=== PATIENT | female | born 1985 | race Caucasian/White ===

== ENCOUNTER 2016-10-08 18:04 | Observation (INO) | payer MEDICAID ==
[~2016-10-08] VITALS: Ht 162.6 cm; Wt 72.6 kg
[~2016-10-08 18:04] MED LIST: FOLI-43 PO; PNV1TABL76 PO
[2016-10-08] MEDS ORDERED: DEXT 5%/LACTATED RINGERS 1,000 ML IV SCH (18:30)
== END 2016-10-08 19:50 | disposition home or self-care (01) ==
LOC: L&D 18:04
PROVIDERS: ADMIT Obstetrics & Gynecology; ATTEND Obstetrics & Gynecology
DX: O26.893 Other specified pregnancy related conditions, third trimester (principal); R11.0 Nausea; R53.1 Weakness; Z3A.00 Weeks of gestation of pregnancy not specified
CPT/HCPCS: 99281; G0378; 96360; G0379

== ENCOUNTER 2016-11-09 02:10 | Observation (INO) | payer MEDICAID ==
[~2016-11-09] VITALS: Ht 154.9 cm; Wt 74.8 kg
[2016-11-09] MEDS ORDERED: ACETAMINOPHEN 500MG TABLET PO NR (03:00)
== END 2016-11-09 04:10 | disposition home or self-care (01) ==
LOC: L&D 02:10
PROVIDERS: ADMIT Obstetrics & Gynecology; ATTEND Obstetrics & Gynecology
DX: O36.8130 Decreased fetal movements, third trimester, not applicable or unspecified (principal); Z3A.36 36 weeks gestation of pregnancy
CPT/HCPCS: 76815; 76818; 99281; G0378; 96361; 96372

== ENCOUNTER 2016-11-14 14:11 | Observation (INO) | payer MEDICAID ==
[~2016-11-14] VITALS: Ht 154.9 cm; Wt 76.2 kg
== END 2016-11-14 17:05 | disposition home or self-care (01) ==
LOC: L&D 14:11
PROVIDERS: ADMIT Obstetrics & Gynecology; ATTEND Obstetrics & Gynecology
DX: O42.92 Full-term premature rupture of membranes, unspecified as to length of time between rupture and onset of labor (principal); Z3A.37 37 weeks gestation of pregnancy
CPT/HCPCS: 76815; 76818; 99281; G0378; A4315

== ENCOUNTER 2017-03-05 22:59 | Emergency (ER) | payer MEDICAID ==
[~2017-03-05] VITALS: Ht 157.5 cm; Wt 70.0 kg
[2017-03-06] MEDS ORDERED: KETOROLAC 30MG/ML VIAL IV STA (02:04)
[2017-03-06] MEDS ORDERED: ONDANSETRON HCL 4MG/2ML VIAL IV STA (02:04)
[2017-03-06] MEDS ORDERED: SODIUM CHLORIDE 0.9% 1,000 ML IV ONE (02:04)
[2017-03-06 02:26] LABS: CHLORIDE 102 mEq/L (98-107)
[2017-03-06 02:28] LABS: BASOPHILS % 0.2 % (0.0-2.0); EOSINOPHILS % 0.6 % (0.0-5.0); HEMATOCRIT. 40.4 % (36.0-48.0); HEMOGLOBIN. 13.9 g/dL (12.0-16.0); LYMPHOCYTES % 19.4 % (20.0-50.0); MEAN CORPUSCULAR HEMOGLOBIN 29.3 pg (28.0-32.0); MEAN CORPUSCULAR VOLUME 85.3 fL (81.0-99.0); MEAN PLATELET VOLUME 9.7 fl (7.4-10.4); MONOCYTES % 5.7 % (2.0-8.0); NEUTROPHILS % 74.1 % (40.0-76.0); PLATELET 210 x1000/uL (130-400); RED BLOOD CELL COUNT 4.74 mill/uL (4.2-5.4); RED CELL DISTRIBUTION WIDTH 13.5 % (11.6-14.6)
[2017-03-06 02:29] LABS: PROTHROMBIN TIME 10.6 sec
[2017-03-06 02:34] LABS: CARBON DIOXIDE 31 mEq/L (21-32)
[2017-03-06 02:53] LABS: CLARITY URINE CLEAR (CLEAR); COLOR URINE YELLOW (YELLOW); GLUCOSE URINE NEGATIVE (NEGATIVE); KETONES URINE NEGATIVE (NEGATIVE); LEUKOCYTE ESTERASE URINE 1+ (NEGATIVE); NITRITE URINE NEGATIVE (NEGATIVE); OCCULT BLOOD URINE TRACE (NEGATIVE); PROTEIN URINE TRACE (NEGATIVE); SPECIFIC GRAVITY URINE 1.026 (1.005-1.030)
[2017-03-06 04:55] VITALS: BP 101/70
== END 2017-03-06 05:21 | disposition home or self-care (01) ==
LOC: ER 03-06 01:26
DX: N39.0 Urinary tract infection, site not specified (principal); Z97.5 Presence of (intrauterine) contraceptive device
CPT/HCPCS: 36415; 80053; 81001; 81025; 83690; 85025; 85610; 96361; 96374; 96375; 99284; J1885; J2405; J7030; Z7610

== ENCOUNTER 2019-06-07 11:09 | Inpatient (IN) | payer OTHER, MEDICAID ==
[~2019-06-07] VITALS: Ht 154.9 cm; Wt 72.6 kg
[2019-06-07] MEDS ORDERED: SODIUM CHLORIDE 0.9% 1,000 ML IV ONE (11:48)
[2019-06-07] MEDS ORDERED: MORPHINE SULFATE 4 MG/ML CPJ (NOT FOR IM USE) IV STA (11:48)
[2019-06-07] MEDS ORDERED: HYDROCODONE/ACETAMINOPHEN 5/325MG TABLET PO ONE (12:30)
[2019-06-07 13:02] LABS: BASOPHILS % 0.4 % (0.0-2.0); EOSINOPHILS % 0.3 % (0.0-5.0); HEMATOCRIT. 42.1 % (36.0-48.0); HEMOGLOBIN. 14.1 g/dL (12.0-16.0); LYMPHOCYTES % 21.4 % (20.0-50.0); MEAN CORPUSCULAR HEMOGLOBIN 28.8 pg (28.0-32.0); MEAN CORPUSCULAR VOLUME 86.3 fL (81.0-99.0); MEAN PLATELET VOLUME 10.6 fl (7.4-10.4); MONOCYTES % 4.3 % (2.0-8.0); NEUTROPHILS % 73.6 % (40.0-76.0); PLATELET 192 x1000/uL (130-400); RED BLOOD CELL COUNT 4.88 mill/uL (4.2-5.4); RED CELL DISTRIBUTION WIDTH 13.2 % (11.6-14.6)
[2019-06-07 13:08] LABS: PROTHROMBIN TIME 10.5 sec (9.6-11.0)
[2019-06-07 13:09] LABS: CHLORIDE 110 mEq/L (98-107)
[2019-06-07 13:11] LABS: CLARITY URINE CLEAR (CLEAR); COLOR URINE YELLOW (YELLOW); KETONES URINE NEGATIVE (NEGATIVE); LEUKOCYTE ESTERASE URINE NEGATIVE (NEGATIVE); NITRITE URINE NEGATIVE (NEGATIVE); OCCULT BLOOD URINE TRACE (NEGATIVE); PROTEIN URINE NEGATIVE (NEGATIVE); SPECIFIC GRAVITY URINE 1.019 (1.005-1.030); UROBILINOGEN URINE 0.2 E.U./dL (0.2-1.0)
[2019-06-07] MEDS ORDERED: CEFTRIAXONE 1 G PREMIX 50 ML IV ONE (15:45)
[2019-06-07] MEDS ORDERED: METRONIDAZOLE 500 MG PREMIX 100 ML IV ONE (15:45)
[2019-06-07 20:00] VITALS: BP 116/70
[2019-06-07 21:00] VITALS: BP 115/85
[2019-06-08] VITALS: BP 102/72
[2019-06-08] MEDS ORDERED: MORPHINE SULFATE 2 MG/ML CPJ (NOT FOR IM USE) IV PRN (03:15)
[2019-06-08] MEDS ORDERED: CLONIDINE 0.1MG TABLET PO PRN (03:15)
[2019-06-08] MEDS ORDERED: HYDROCODONE/ACETAMINOPHEN 5/325MG TABLET PO PRN (03:15)
[2019-06-08] MEDS ORDERED: MAGNESIUM/ALUMINUM HYDROXIDE/SIMETHICONE 30ML UDC PO PRN (03:15)
[2019-06-08] MEDS ORDERED: LEVOFLOXACIN 500MG PREMIX 100 ML IV SCH ×2 (03:15→08:00)
[2019-06-08] MEDS ORDERED: ONDANSETRON HCL 4MG/2ML INJ IV PRN (03:15)
[2019-06-08] MEDS ORDERED: ACETAMINOPHEN 325MG TABLET PO PRN (03:15)
[2019-06-08 04:00] VITALS: BP 98/66
[2019-06-08] MEDS ORDERED: DEXT 5%/0.45% NACL 1000ML 1,000 ML IV SCH (04:30)
[2019-06-08] MEDS: METRONIDAZOLE 500 MG PREMIX 100 ML IV SCH ×2 (05:44→14:00)
[2019-06-08] MEDS ORDERED: METRONIDAZOLE 500 MG PREMIX 100 ML IV SCH (06:00)
[2019-06-08 08:00] VITALS: BP 102/58
[2019-06-08] MEDS ORDERED: ENOXAPARIN 40MG/0.4ML SYR SUBCUT SCH (09:00)
[2019-06-08] MEDS ORDERED: POTASSIUM CHLORIDE 10MEQ TABLET SR PO SCH (11:30)
[2019-06-08 12:00] VITALS: BP 98/62
[2019-06-08 12:24] VITALS: BP 98/62
== END 2019-06-08 15:00 | disposition home or self-care (01) ==
LOC: ER 11:09 → 6EST 15:37 → ENRESERV 18:32
PROVIDERS: ADMIT Hospitalist; ATTEND Hospitalist
DX: K80.60 Calculus of gallbladder and bile duct with cholecystitis, unspecified, without obstruction (principal); Z79.899 Other long term (current) drug therapy
CPT/HCPCS: 36415; 74176; 76700; 81003; 86850; 86900; 93970; 96365; 99285; J0696; J1650; J1956; J2270; J3490; J7030

== ENCOUNTER 2019-12-23 15:21 | Emergency (ER) | payer MEDICAID ==
[~2019-12-23] VITALS: Ht 172.7 cm; Wt 75.0 kg
[2019-12-23 18:12] LABS: BASOPHILS % 0.4 % (0.0-2.0); HEMOGLOBIN. 14.1 g/dL (12.0-16.0); LYMPHOCYTES % 25.1 % (20.0-50.0); MEAN CORPUSCULAR HEMOGLOBIN 29.7 pg (28.0-32.0); MEAN CORPUSCULAR VOLUME 86.4 fL (81.0-99.0); MEAN PLATELET VOLUME 10.6 fl (7.4-10.4); MONOCYTES % 6.5 % (2.0-8.0); PLATELET 195 x1000/uL (130-400); RED BLOOD CELL COUNT 4.75 mill/uL (4.2-5.4); RED CELL DISTRIBUTION WIDTH 12.9 % (11.6-14.6)
[2019-12-23] MEDS ORDERED: VISCOUS LIDOCAINE 2% 15 ML UDC PO ONE (18:15)
[2019-12-23] MEDS ORDERED: ASPIRIN 81MG TABLET PO ONE (18:15)
[2019-12-23] MEDS ORDERED: MAGNESIUM/ALUMINUM HYDROXIDE/SIMETHICONE 30ML UDC PO ONE (18:15)
[2019-12-23] MEDS ORDERED: MECLIZINE 25MG TABLET PO NR (18:30)
[2019-12-23] MEDS ORDERED: KETOROLAC 30MG/ML VIAL IV ONE (18:30)
[2019-12-23 18:31] LABS: CHLORIDE 105 mEq/L (98-107); HCG SCREEN NEGATIVE
[2019-12-23 18:38] LABS: ETHANOL BLOOD < 10 mg/dL
[2019-12-23 19:45] LABS: *COCAINE SCREEN URINE NEGATIVE (NEGATIVE)
[2019-12-23 19:46] LABS: *AMPHETAMINES SCREEN URINE NEGATIVE (NEGATIVE); *BARBITURATES SCREEN URINE NEGATIVE (NEGATIVE); CANNABINOID URINE SCREEN NEGATIVE (NEGATIVE); METHADONE URINE SCREEN NEGATIVE (NEGATIVE); OPIATES URINE SCREEN NEGATIVE (NEGATIVE); PHENCYCLIDINE URINE SCREEN NEGATIVE (NEGATIVE)
[2019-12-23 19:47] LABS: *BENZODIAZEPINES SCREEN URINE NEGATIVE (NEGATIVE)
[2019-12-23 20:22] VITALS: BP 123/88
== END 2019-12-23 20:26 | disposition home or self-care (01) ==
LOC: ER 15:21
DX: R07.89 Other chest pain (principal)
CPT/HCPCS: 36415; 71045; 80053; 80305; 80320; 81025; 83690; 83880; 84484; 84703; 85025; 93005; 96374; 99285; J1885; J8597; Z7610; G0480

== ENCOUNTER 2021-05-21 14:14 | Emergency (ER) | payer MEDICAID ==
[~2021-05-21] VITALS: Ht 162.6 cm; Wt 65.0 kg
[2021-05-21 19:33] LABS: BASOPHILS % 0.6 % (0.0-2.0); EOSINOPHILS % 1.8 % (0.0-5.0); LYMPHOCYTES % 36.1 % (20.0-50.0); MEAN CORPUSCULAR HEMOGLOBIN 29.5 pg (28.0-32.0); MEAN CORPUSCULAR VOLUME 86.4 fL (81.0-99.0); MEAN PLATELET VOLUME 10.1 fl (7.4-10.4); NEUTROPHILS % 54.5 % (40.0-76.0); PLATELET 223 x1000/uL (130-400); RED BLOOD CELL COUNT 4.74 mill/uL (4.2-5.4); RED CELL DISTRIBUTION WIDTH 12.9 % (11.6-14.6)
[2021-05-21 19:41] LABS: CHLORIDE 106 mEq/L (98-107)
[2021-05-21 21:13] VITALS: BP 132/68
== END 2021-05-21 21:14 | disposition home or self-care (01) ==
LOC: ER 14:14
DX: R07.89 Other chest pain (principal)
CPT/HCPCS: 36415; 71045; 80053; 84484; 85025; 93005; 99285

== ENCOUNTER 2021-12-08 14:37 | Emergency (ER) | payer MEDICAID ==
[~2021-12-08] VITALS: Ht 160 cm; Wt 75.0 kg
[2021-12-08 15:20] LABS: BASOPHILS % 0.3 % (0.0-2.0); EOSINOPHILS % 1.2 % (0.0-5.0); HEMATOCRIT. 40.1 % (36.0-48.0); HEMOGLOBIN. 13.5 g/dL (12.0-16.0); LYMPHOCYTES % 30.2 % (20.0-50.0); MEAN CORPUSCULAR HEMOGLOBIN 28.9 pg (28.0-32.0); MEAN CORPUSCULAR VOLUME 85.8 fL (81.0-99.0); MONOCYTES % 6.4 % (2.0-8.0); NEUTROPHILS % 61.9 % (40.0-76.0); PLATELET 188 x1000/uL (130-400); RED BLOOD CELL COUNT 4.67 mill/uL (4.2-5.4); RED CELL DISTRIBUTION WIDTH 12.7 % (11.6-14.6)
[2021-12-08 15:27] LABS: CHLORIDE 107 mEq/L (98-107)
[2021-12-08] MEDS ORDERED: IBUP-2029 MT (23:59)
[2021-12-08] MEDS ORDERED: DICL500C MT (23:59)
[2021-12-09] VITALS: BP 132/67
== END 2021-12-09 00:24 | disposition home or self-care (01) ==
LOC: ER 14:37
DX: N61.0 Mastitis without abscess (principal); N64.59 Other signs and symptoms in breast; R07.89 Other chest pain
CPT/HCPCS: 36415; 71045; 80053; 83880; 85025; 93005; 99285

== ENCOUNTER 2023-05-21 08:25 | Emergency (ER) | payer MEDICAID ==
[~2023-05-21] VITALS: Ht 154.9 cm; Wt 72.0 kg
[~2023-05-21 08:25] MED LIST changes: +DICL500C MT; +IBUP-2029 MT
[2023-05-21 08:36] VITALS: BP 112/74; PULSE 101; RESP 18; TEMP 98.6; O2SAT 98
[2023-05-21 09:10] LABS: CLARITY URINE CLOUDY (CLEAR); COLOR URINE YELLOW (YELLOW); GLUCOSE URINE NEGATIVE (NEGATIVE); KETONES URINE NEGATIVE (NEGATIVE); LEUKOCYTE ESTERASE URINE NEGATIVE (NEGATIVE); NITRITE URINE NEGATIVE (NEGATIVE); OCCULT BLOOD URINE NEGATIVE (NEGATIVE); PROTEIN URINE NEGATIVE (NEGATIVE); SPECIFIC GRAVITY URINE 1.023 (1.005-1.030)
[2023-05-21 09:26] LABS: RBC URINE 0-2 /hpf (0-2); SQUAMOUS EPITHELIAL CELL URINE 3+ /lpf (RARE/1+); WBC URINE 0-2 /hpf (0-2)
[2023-05-21 09:27] LABS: MUCUS URINE TRACE /lpf (< = 2+)
[2023-05-21 09:29] LABS: BACTERIA URINE 1+
[2023-05-21] MEDS ORDERED: SULF1TAB48 MT (09:52)
[2023-05-21] MEDS ORDERED: PYR200 MT (09:52)
== END 2023-05-21 10:10 | disposition home or self-care (01) ==
LOC: ER 08:40
DX: R30.0 Dysuria (principal); R35.0 Frequency of micturition; Z79.899 Other long term (current) drug therapy
CPT/HCPCS: 81003; 81025; 99283

== ENCOUNTER 2023-09-09 05:12 | Emergency (ER) | payer MEDICAID ==
[~2023-09-09] VITALS: Ht 154.9 cm; Wt 70.0 kg
[~2023-09-09 05:12] MED LIST changes: +PYR200 MT; +SULF1TAB48 MT
[2023-09-09 05:16] VITALS: O2SAT 100
[2023-09-09 05:45] LABS: BASOPHILS % 0.3 % (0.0-2.0); EOSINOPHILS % 0.4 % (0.0-5.0); HEMATOCRIT. 41.2 % (36.0-48.0); HEMOGLOBIN. 13.9 g/dL (12.0-16.0); LYMPHOCYTES % 14.5 % (20.0-50.0); MEAN CORPUSCULAR HEMOGLOBIN 29.1 pg (28.0-32.0); MEAN CORPUSCULAR HGB CONC 33.7 g/dL (31.0-37.0); MEAN CORPUSCULAR VOLUME 86.4 fL (81.0-99.0); MONOCYTES % 4.8 % (2.0-8.0); PLATELET 178 x1000/uL (130-400); RED BLOOD CELL COUNT 4.77 mill/uL (4.2-5.4); RED CELL DISTRIBUTION WIDTH 13.2 % (11.6-14.6); WHITE BLOOD COUNT 13.9 x1000/uL (4.5-11.0)
[2023-09-09 06:05] LABS: ALANINE AMINOTRANSFERASE 16 IU/L (10-49); ALBUMIN 4.6 g/dL (3.2-4.8); ASPARTATE AMINOTRANSFERASE 15 IU/L (<34); BILIRUBIN TOTAL 0.9 mg/dL (0.1-1.0); CARBON DIOXIDE 25 mEq/L (21-32); CHLORIDE 106 mEq/L (98-107); CREATININE 0.5 mg/dL (0.6-1.0); GLUCOSE 102 mg/dL (70-105); PROTEIN TOTAL 7.6 g/dL (6.0-8.3); SODIUM 137 mEq/L (136-145); UREA NITROGEN BLOOD 11 mg/dL (9-23)
[2023-09-09 06:06] LABS: TROPONIN I HIGH SENSITIVITY < 4 ng/L (3.0-34)
[2023-09-09 06:35] LABS: HCG SCREEN NEGATIVE
[2023-09-09 06:46] LABS: CLARITY URINE CLEAR (CLEAR); COLOR URINE YELLOW (YELLOW); GLUCOSE URINE NEGATIVE (NEGATIVE); KETONES URINE NEGATIVE (NEGATIVE); LEUKOCYTE ESTERASE URINE NEGATIVE (NEGATIVE); NITRITE URINE NEGATIVE (NEGATIVE); OCCULT BLOOD URINE TRACE (NEGATIVE); PH URINE 5.5 (4.5-8.0); PROTEIN URINE NEGATIVE (NEGATIVE); SPECIFIC GRAVITY URINE 1.024 (1.005-1.030); UROBILINOGEN URINE 0.2 E.U./dL (0.2-1.0)
[2023-09-09 07:21] LABS: SQUAMOUS EPITHELIAL CELL URINE 2+ /lpf (RARE/1+)
[2023-09-09 07:22] LABS: WBC URINE 0-2 /hpf (0-2)
[2023-09-09 07:23] LABS: BACTERIA URINE NONE SEEN; RBC URINE 0-2 /hpf (0-2)
[2023-09-09] MEDS: FAMOTIDINE 20MG TABLET PO ONE (08:45)
[2023-09-09] MEDS: MAGNESIUM/ALUMINUM HYDROXIDE/SIMETHICONE 30ML UDC PO ONE (08:45)
[2023-09-09] MEDS: ACETAMINOPHEN 325MG TABLET PO ONE (08:45)
[2023-09-09] MEDS: ONDANSETRON 4MG ODT PO ONE (08:45)
[2023-09-09] MEDS ORDERED: MAG355OR21 MT (08:47)
[2023-09-09] MEDS ORDERED: FAMO-135 MT (08:47)
[2023-09-09 09:18] VITALS: BP 108/72; PULSE 74; RESP 16; TEMP 98.5
== END 2023-09-09 09:58 | disposition home or self-care (01) ==
LOC: ER 05:35
DX: R10.11 Right upper quadrant pain (principal)
CPT/HCPCS: 99285; 74176; 76705; 80053; 81003; 81025; 84703; 83690; 85025; 84484; 36415; 93005; Q0162

== ENCOUNTER 2024-04-25 16:46 | Emergency (ER) | payer MEDICAID ==
[~2024-04-25] VITALS: Ht 154.9 cm; Wt 54.0 kg
[~2024-04-25 16:46] MED LIST changes: +FAMO-135 MT; +MAG355OR21 MT
[2024-04-25 16:56] VITALS: O2SAT 98
[2024-04-25 19:46] LABS: BASOPHILS % 0.3 % (0.0-2.0); EOSINOPHILS % 1.2 % (0.0-5.0); HEMATOCRIT. 39.1 % (36.0-48.0); HEMOGLOBIN. 13.1 g/dL (12.0-16.0); LYMPHOCYTES % 28.6 % (20.0-50.0); MEAN CORPUSCULAR HEMOGLOBIN 29.8 pg (28.0-32.0); MEAN CORPUSCULAR HGB CONC 33.5 g/dL (31.0-37.0); MEAN CORPUSCULAR VOLUME 88.9 fL (81.0-99.0); MEAN PLATELET VOLUME 9.8 fl (7.4-10.4); MONOCYTES % 5.5 % (2.0-8.0); NEUTROPHILS % 64.4 % (40.0-76.0); PLATELET 210 x1000/uL (130-400); WHITE BLOOD COUNT 7.6 x1000/uL (4.5-11.0)
[2024-04-25 19:52] LABS: CHLORIDE 107 mEq/L (98-107); POTASSIUM 3.6 mEq/L (3.5-5.1); SODIUM 140 mEq/L (136-145)
[2024-04-25 19:53] LABS: CALCIUM 9.6 mg/dL (8.7-10.4); CARBON DIOXIDE 26 mEq/L (21-32)
[2024-04-25 19:58] LABS: CREATININE 0.5 mg/dL (0.6-1.0); GLUCOSE 73 mg/dL (70-105); UREA NITROGEN BLOOD 8 mg/dL (9-23)
[2024-04-25 20:34] LABS: TROPONIN I HIGH SENSITIVITY < 4 ng/L (3.0-34)
[2024-04-25] MEDS ORDERED: IBUP-2029 MT (21:06)
[2024-04-25 21:16] VITALS: BP 110/72; PULSE 68; RESP 16; TEMP 36.89184; O2SAT 98
== END 2024-04-25 21:19 | disposition home or self-care (01) ==
LOC: ER 16:46
DX: R07.89 Other chest pain (principal); Z79.899 Other long term (current) drug therapy
CPT/HCPCS: 36415; 71045; 80048; 84484; 85025; 93005; 99285

== ENCOUNTER 2025-07-07 16:44 | Emergency (ER) | payer MEDICAID ==
[~2025-07-07] VITALS: Ht 154.9 cm; Wt 73.0 kg
[~2025-07-07 16:44] MED LIST changes: +IBUP-1455 MT; -IBUP-2029 MT
[2025-07-07 16:53] VITALS: O2SAT 98
[2025-07-07 17:33] LABS: BASOPHILS % 0.5 % (0.0-2.0); EOSINOPHILS % 0.9 % (0.0-5.0); HEMATOCRIT. 39.6 % (36.0-48.0); HEMOGLOBIN. 13.1 g/dL (12.0-16.0); LYMPHOCYTES % 29.5 % (20.0-50.0); MEAN PLATELET VOLUME 9.6 fl (7.4-10.4); MONOCYTES % 5.9 % (2.0-8.0); NEUTROPHILS % 63.2 % (40.0-76.0); PLATELET 228 x1000/uL (130-400); RED BLOOD CELL COUNT 4.63 mill/uL (4.2-5.4); RED CELL DISTRIBUTION WIDTH 13.3 % (11.6-14.6)
[2025-07-07 17:56] LABS: CREATININE 0.5 mg/dL (0.6-1.0); UREA NITROGEN BLOOD 6 mg/dL (9-23)
[2025-07-07 18:12] LABS: CLARITY URINE CLEAR (CLEAR); COLOR URINE YELLOW (YELLOW); GLUCOSE URINE NEGATIVE (NEGATIVE); KETONES URINE NEGATIVE (NEGATIVE); LEUKOCYTE ESTERASE URINE NEGATIVE (NEGATIVE); NITRITE URINE NEGATIVE (NEGATIVE); OCCULT BLOOD URINE NEGATIVE (NEGATIVE); PH URINE 6.5 (4.5-8.0); PROTEIN URINE NEGATIVE (NEGATIVE); SPECIFIC GRAVITY URINE 1.015 (1.005-1.030); UROBILINOGEN URINE 0.2 E.U./dL (0.2-1.0)
[2025-07-07] MEDS ORDERED: CEPH500C2 MT (20:45)
[2025-07-07 21:23] VITALS: BP 106/72; PULSE 80; RESP 16; TEMP 36.7; O2SAT 98
== END 2025-07-07 21:26 | disposition home or self-care (01) ==
LOC: ER 16:44
DX: N30.90 Cystitis, unspecified without hematuria (principal)
CPT/HCPCS: 36415; 80048; 81003; 81025; 85025; 99283